=== PATIENT | female | born 1995 | race Caucasian/White ===

== ENCOUNTER 2021-01-24 00:01 | Emergency (ER) | payer OTHER ==
[~2021-01-24] VITALS: Ht 177.8 cm; Wt 68.0 kg
[2021-01-24] MEDS ORDERED: MEDROLPACK PO (01:58)
[2021-01-24] MEDS ORDERED: BENADRYL ALLERG25 MG PO (01:58)
== END 2021-01-24 03:11 | disposition home or self-care (01) ==
LOC: ER 00:01
DX: T78.49XA Other allergy, initial encounter (principal); X58.XXXA Exposure to other specified factors, initial encounter